=== PATIENT | male | born 1960 | race Caucasian/White ===

== ENCOUNTER 2020-08-21 16:56 | Inpatient (IN) | payer BC, SELFPAY ==
[2020-08-21] VITALS (13 sets, daily range): BP systolic 129–156; BP diastolic 73–100; PULSE 68–92; RESP 18–31; TEMP 36.4–38; O2SAT 88–96; BMI 29.1; BMI 29.4
--- NOTE | 2020-08-21 17:03 | EKG12_ITS ---
Test Reason : Blood Pressure : / mmHG Vent. Rate : 075 BPM Atrial Rate : 075 BPM P-R Int : 120 ms QRS Dur : 090 ms QT Int : 384 ms P-R-T Axes : 047 068 051 degrees QTc Int : 428 ms Normal sinus rhythm Normal ECG Confirmed by DAVID VERMA, DIOR ([id number]), online content editor KENISHA TOUSSAINT ([id number]) on 08/23/2020 10:47:08 A M Referred By: ABDULKADIR Confirmed By:RIAN HERNANDEZ MD
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
[2020-08-21 17:22] LABS: Prothrombin Time (Protime)PT. 12.7 SECONDS (11.7-14.9)
[2020-08-21] MEDS: Albuterol 2.5 MG/3 ML VIAL.NEB. INHALATION (17:22)
[2020-08-21 17:23] LABS: Partial Thromboplast Time 30.5 Seconds (24.1-36.2)
[2020-08-21 17:26] LABS: Absolute Neutrophil Count 17.2 X10^3/uL (2.0-7.7); Basophil# 0.06 X10^3/uL; Basophil% 0.3 % (0-1); Hematocrit 42.5 % (40-54); Hemoglobin 14.2 g/dL (13.0-16.5); Lymphocyte % 6.2 % (19-41); Mean Corp Hgb Conc 33.4 g/dL (32-36); Mean Corpuscular Hgb 29.1 pg (27.0-32.0); Mean Corpuscular Volume 87.1 fL (80-94); Mean Platelet Vol. 9.9 fl (6.2-12.0); Monocyte# 0.94 X10^3/uL; Monocyte% 4.8 % (0-10); NRBC Flagged by Analyzer 0 % (0-5); Neutrophil # 17.19 X10^3/uL (2.7-7.7); Neutrophil % 88.1 % (47-70); Platelet Count 297 K/mm3 (150-450); RBC Distribution Width CV 14.2 % (11.6-14.6); RBC Distribution Width SD 45.5 fl (35.1-43.9); Red Blood Count 4.88 M/mm3 (4.6-6.2); White Blood Count 19.5 K/mm3 (4.4-11.0)
[2020-08-21 17:30] LABS: ALB/GLOB Ratio 0.9 RATIO (0.9-2.4); AST(SGOT) 15 U/L (15-37); Alanine Aminotransfer ALT/SGPT 23 U/L (16-61); Albumin, Serum 3.7 g/dL (3.2-5.0); Alkaline Phosphatase 69 U/L (45-117); Anion Gap 6 (5-15); BUN 17 mg/dL (7-18); BUN/Creat Ratio 15.3 RATIO (10-20); Calcium,Total 9.5 mg/dL (8.5-10.1); Chloride 100 mmol/L (98-107); Creatinine, Serum 1.11 mg/dL (0.70-1.30); EST Glomerular Filtration Rate 72 mL/min (>60); Est Glom Filt Rate - Afr Amer 87 mL/min (>60); Glucose 126 mg/dL (74-106); Potassium 3.7 mmol/L (3.5-5.1); Protein, Total 7.7 g/dL (6.4-8.2); Sodium Level 134 mmol/L (136-145)
[2020-08-21 17:37] LABS: Lactic Acid 1.6 mmol/L (0.4-1.9)
[2020-08-21 19:38] LABS: Squamous Epithelial Cells - UA 0 SEEN /hpf (0-5)
[2020-08-21 19:39] LABS: Color, Urine Yellow (Yellow); Glucose, Dipstick Normal (Normal); Ketone-Dipstick 50 mg/dl (Negative); Leukocyte Esterase-Dipstick 25 /ul (Negative); Nitrite-Dipstick Negative (Negative); Occult Blood-Urine 150 /ul (Negative); Protein-Dipstick 30 mg/dl (Negative); Urine Bilirubin Dipstick Negative (Negative); Urine Clarity Clear (Clear); Urine Urobilinogen 1 mg/dl (Normal)
[2020-08-21 19:47] LABS: Red Blood Cells-Urine 0-5 SEEN /hpf (0-5); White Blood Cells 0-5 SEEN /hpf (0-5)
[2020-08-21 19:48] LABS: Bacteria RARE /hpf (None Seen); Mucous, Urine 1+ /hpf (<or=2+)
[2020-08-21] MEDS: 0.9% Normal Saline 1,000 ML 100 ML IV (21:58)
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
[2020-08-21] MEDS: Atorvastatin Calcium 40 MG Tablet PO (22:06)
[2020-08-21] MEDS: Morphine 2 MG/ML Syringe IV (22:23)
[2020-08-21 22:31] LABS: Bedside Glucose 128 mg/dL (70-110)
[2020-08-22] VITALS (10 sets, daily range): BP systolic 124–147; BP diastolic 78–89; PULSE 55–70; RESP 16–20; TEMP 36.7–36.8; O2SAT 93–99
[2020-08-22] MEDS: oxyCODONE 5 MG Tablet PO ×2 (03:23→11:03)
[2020-08-22] MEDS: Acetaminophen 325 MG Tablet 650 MG PO ×2 (03:23→11:03)
[2020-08-22 06:48] LABS: Absolute Neutrophil Count 14.7 X10^3/uL (2.0-7.7); Basophil# 0.06 X10^3/uL; Basophil% 0.4 % (0-1); Eosinophil# 0.01 X10^3/uL; Eosinophils% 0.1 % (0-5); Hematocrit 39.6 % (40-54); Hemoglobin 12.8 g/dL (13.0-16.5); Mean Corp Hgb Conc 32.3 g/dL (32-36); Mean Corpuscular Hgb 29.2 pg (27.0-32.0); Mean Corpuscular Volume 90.2 fL (80-94); Mean Platelet Vol. 9.7 fl (6.2-12.0); Monocyte# 0.93 X10^3/uL; Monocyte% 5.5 % (0-10); NRBC Flagged by Analyzer 0 % (0-5); Neutrophil % 86.2 % (47-70); Platelet Count 232 K/mm3 (150-450); RBC Distribution Width CV 14.3 % (11.6-14.6); Red Blood Count 4.39 M/mm3 (4.6-6.2)
[2020-08-22] MEDS: 0.9% Normal Saline 1,000 ML 100 ML IV ×2 (06:48→16:47)
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
[2020-08-22 07:11] LABS: Anion Gap 6 (5-15); BUN 17 mg/dL (7-18); BUN/Creat Ratio 19.7 RATIO (10-20); Calcium,Total 8.6 mg/dL (8.5-10.1); Chloride 103 mmol/L (98-107); Creatinine, Serum 0.86 mg/dL (0.70-1.30); EST Glomerular Filtration Rate 97 mL/min (>60); Est Glom Filt Rate - Afr Amer 117 mL/min (>60); Estimated Creatinine Clearance 96.67 ml/min; Glucose 115 mg/dL (74-106); Potassium 3.6 mmol/L (3.5-5.1); Sodium Level 136 mmol/L (136-145)
[2020-08-22 07:30] LABS: Bedside Glucose 103 mg/dL (70-110)
[2020-08-22] MEDS: Morphine 2 MG/ML Syringe IV ×2 (07:37→19:28)
[2020-08-22] MEDS: 0.9% Saline Lock 10 ML Syringe IV ×2 (07:38→22:12)
[2020-08-22] MEDS: Aspirin 81 MG TAB.CHEW PO (08:01)
[2020-08-22] MEDS: hydroCHLOROthiazide 12.5mg 12.5 MG PO (09:34)
[2020-08-22] MEDS: Azithromycin 250 MG Tablet 500 MG PO (09:34)
[2020-08-22] MEDS: Metoprolol(XL)Succ 50 MG Tablet PO (09:34)
[2020-08-22] MEDS: Lisinopril 20 MG Tablet PO (09:34)
[2020-08-22] MEDS: Enoxaparin 40 MG/0.4 ML Syringe SC (09:36)
--- NOTE | 2020-08-22 11:45 | CASEMGMT ---
RN CM Face to Face with patient for initial transition planning/care coordination assessment. RN CM introduced self and role at [facility]. Patient lying in bed, alert and oriented. Patient willing to participate in assessment and is able to answer all questions appropriately. Care providers, pharmacy, and demographics verified. Patient wishes to discharge home, denies need for home health at this time. Patient states he has no further needs or concerns at this time. CM to follow for discharge planning needs that may arise. PCP: Jerry PUTNAM Specialists: none [facility]erred [facility]acy[facility] Insurance: Cj Prescription Benefit: yes Living Will/HPOA: none LNOK: Fiance Living Arrangements: Patient lives with fihomer in a single story home with 3-4 steps and railing to enter the home. Patient states he is independent at home. Transportation: self/fiance DME/HHC: Patient denies DME or previous HHC. Disposition Plan: Patient to discharge home with family support and follow-up plans in place. Stephania QUIROZ, RN, CM
[2020-08-22 12:01] LABS: Bedside Glucose 128 mg/dL (70-110)
--- NOTE | 2020-08-22 15:04 | NURSING ---
O2 SAT 99% ON 3L NC - O2 DECREASED TO 1 L NC - WILL MONITOR
[2020-08-22 16:56] LABS: Bedside Glucose 124 mg/dL (70-110)
--- NOTE | 2020-08-22 17:38 | NURSING ---
offered to ambulate with pt, pt declines at this time
[2020-08-22] MEDS: Atorvastatin Calcium 40 MG Tablet PO (22:08)
[2020-08-22 22:21] LABS: Bedside Glucose 117 mg/dL (70-110)
[2020-08-23] MEDS: Acetaminophen 325 MG Tablet 650 MG PO ×2 (01:10→07:27)
[2020-08-23] MEDS: oxyCODONE 5 MG Tablet PO ×2 (01:10→07:28)
[2020-08-23 03:00] VITALS: BP 132/91; PULSE 52; RESP 16; TEMP 36.8; O2SAT 96
[2020-08-23] MEDS: 0.9% Normal Saline 1,000 ML 100 ML IV (03:40)
[2020-08-23 07:05] LABS: Bedside Glucose 135 mg/dL (70-110)
[2020-08-23 07:22] VITALS: O2SAT 94
[2020-08-23 07:45] VITALS: O2SAT 85
[2020-08-23 08:26] VITALS: BP 134/82; PULSE 76; RESP 18; TEMP 36.6; O2SAT 90
[2020-08-23 08:40] VITALS: BP 134/82; PULSE 76
[2020-08-23] MEDS: Aspirin 81 MG TAB.CHEW PO (08:40)
[2020-08-23] MEDS: Enoxaparin 40 MG/0.4 ML Syringe SC (08:40)
[2020-08-23] MEDS: Metoprolol(XL)Succ 50 MG Tablet PO (08:40)
[2020-08-23] MEDS: hydroCHLOROthiazide 12.5mg 12.5 MG PO (08:40)
[2020-08-23] MEDS: Lisinopril 20 MG Tablet PO (08:41)
[2020-08-23] MEDS: Azithromycin 250 MG Tablet 500 MG PO (08:41)
[2020-08-23 08:56] LABS: Absolute Lymphocyte Count 1.04 X10^3/uL (0.83-4.51); Basophil# 0.04 X10^3/uL; Basophil% 0.4 % (0-1); Eosinophil# 0.28 X10^3/uL; Eosinophils% 3.1 % (0-5); Hematocrit 39.8 % (40-54); Lymphocyte # 1.04 X10^3/ul (0.83-4.51); Lymphocyte % 11.3 % (19-41); Mean Corp Hgb Conc 32.7 g/dL (32-36); Mean Corpuscular Hgb 29.1 pg (27.0-32.0); Mean Corpuscular Volume 89.2 fL (80-94); Mean Platelet Vol. 10.2 fl (6.2-12.0); Monocyte# 0.74 X10^3/uL; Monocyte% 8.1 % (0-10); NRBC Flagged by Analyzer 0 % (0-5); Neutrophil # 7.03 X10^3/uL (2.7-7.7); Neutrophil % 76.6 % (47-70); Platelet Count 271 K/mm3 (150-450); RBC Distribution Width CV 14.2 % (11.6-14.6); RBC Distribution Width SD 45.7 fl (35.1-43.9); Red Blood Count 4.46 M/mm3 (4.6-6.2); White Blood Count 9.2 K/mm3 (4.4-11.0)
[2020-08-23 09:13] LABS: Anion Gap 7 (5-15); BUN 16 mg/dL (7-18); Calcium,Total 8.8 mg/dL (8.5-10.1); Chloride 104 mmol/L (98-107); EST Glomerular Filtration Rate 105 mL/min (>60); Est Glom Filt Rate - Afr Amer 127 mL/min (>60); Estimated Creatinine Clearance 103.92 ml/min; Glucose 117 mg/dL (74-106); Magnesium 2.2 mg/dL (1.6-2.6); Potassium 3.6 mmol/L (3.5-5.1); Sodium Level 139 mmol/L (136-145)
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
--- NOTE | 2020-08-23 09:31 | PCM.DC ---
Discharge Instructions Diet Discharge Diet: 1800 Calorie Control Diet Dressing / Incision Call your doctor if you observe: Fever of 101 or Higher, Shortness of breath, Fainting spells and Chest pain Follow Up Care Test Results: Test results from this visit will be discussed in further detail at your follow-up appointment, if applicable. Discharge Plan Admission Admit Date/Time: 08/21/20 20:21 Primary Reason for Your Visit: Pneumonia Attending Provider: Ricky Hendricks Primary Care Provider: Nagi Edwards Discharge Orders/Prescriptions Prescriptions: New azithromycin 250 mg Tablet 500 mg PO Q24 Qty: 3 RF: 0 cefdinir 300 mg capsule 300 mg PO BID Qty: 10 RF: 0 Continued metoprolol succinate 50 MG tablet 50 mg PO DAILY RF: 0 hydrochlorothiazide 12.5 MG capsule 12.5 mg PO DAILY RF: 0 atorvastatin 40 MG tablet 40 mg PO QHS RF: 0 methocarbamol 500 mg tablet 500 mg PO PRN PRN (Reason: Pain) RF: 0 hydrocodone-acetaminophen 5-325 mg tablet 1 tab PO PRN PRN (Reason: Pain) RF: 0 lisinopril 20 mg tablet 20 mg PO DAILY RF: 0 metformin 1,000 mg tablet 1,000 mg PO BID RF: 0 oxycodone 5 mg tablet 5 mg PO PRN PRN (Reason: Pain) RF: 0 Trulicity 0.75 mg/0.5 mL pen injector 0.75 mg subcut PINK RF: 0 aspirin 81 mg Tablet,Chewable 81 mg PO DAILY RF: 0 Referrals / Follow Up: Nagi Edwards PA [Primary Care Provider] - In 1 Week Disposition Disposition (needs filled in before D/C Order can be placed): Home, self care
[2020-08-23 09:41] VITALS: O2SAT 85; O2SAT 90; O2SAT 93
--- NOTE | 2020-08-23 10:00 | CASEMGMT ---
KARLIE BILLINGS updated that patient will need home oxygen at discharge. KARLIE BILLINGS provided patient list of DME in network with insurance. Patient prefers [employer]. [place] [facility] [place]ARLIE BILLINGS arranged for delivery of portable to tank to patient's room prior to discharge. Patient had no further questions or concerns at this time.
== END 2020-08-23 12:27 | disposition home or self-care (01) | DRG 194 ==
LOC: ED 19:22 → MS3 21:11
PROVIDERS: Admitting Provider Family Medicine; Emergency Provider Emergency Medicine; PCP Physician Assistant; Visit Provider Internal Medicine
DX: J18.9 Pneumonia, unspecified organism (principal); S22.41XA Multiple fractures of ribs, right side, initial encounter for closed fracture; R09.02 Hypoxemia; V89.2XXA Person injured in unspecified motor-vehicle accident, traffic, initial encounter; Y93.9 Activity, unspecified; Y92.9 Unspecified place or not applicable; R06.89 Other abnormalities of breathing; E11.9 Type 2 diabetes mellitus without complications; E78.5 Hyperlipidemia, unspecified; I10 Essential (primary) hypertension; I25.10 Atherosclerotic heart disease of native coronary artery without angina pectoris; Z95.5 Presence of coronary angioplasty implant and graft; Z79.84 Long term (current) use of oral hypoglycemic drugs; Z79.82 Long term (current) use of aspirin; Z79.899 Other long term (current) drug therapy; F17.210 Nicotine dependence, cigarettes, uncomplicated
CPT/HCPCS: 36415; 71045; 80048; 80053; 81001; 82962; 83605; 83735; 85025; 85610; 85730; 87040; 87070; 87077; 87086; 87088; 87186; 87205; 93005; 97802; 99285; 99406; J7030; J7040; J7050; A4216; J0696

== ENCOUNTER 2021-10-03 14:42 | Emergency (ER) | payer OTHER, SELFPAY ==
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
[2021-10-03 14:42] VITALS: BP 137/84; PULSE 70; RESP 16; TEMP 35.9; O2SAT 96; BMI 29.8
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
[2021-10-03] MEDS: HYDROcodone Bitartrate/Apap 5/325 Tablet PO (15:30)
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
== END 2021-10-03 17:04 | disposition home or self-care (01) ==
PROVIDERS: Emergency Provider Emergency Medicine; PCP Physician Assistant; Visit Provider Emergency Medicine
DX: S39.012A Strain of muscle, fascia and tendon of lower back, initial encounter (principal); E11.9 Type 2 diabetes mellitus without complications; I25.10 Atherosclerotic heart disease of native coronary artery without angina pectoris; E78.5 Hyperlipidemia, unspecified; I10 Essential (primary) hypertension; Z79.82 Long term (current) use of aspirin; Z79.899 Other long term (current) drug therapy; Z79.84 Long term (current) use of oral hypoglycemic drugs; F17.210 Nicotine dependence, cigarettes, uncomplicated; M19.041 Primary osteoarthritis, right hand; V29.9XXA Motorcycle rider (driver) (passenger) injured in unspecified traffic accident, initial encounter; S00.91XA Abrasion of unspecified part of head, initial encounter
CPT/HCPCS: 70450; 71046; 72125; 73130; 99284

== ENCOUNTER 2021-10-07 05:10 | Emergency (ER) | payer OTHER, SELFPAY ==
[2021-10-07 05:11] VITALS: BP 183/97; PULSE 57; RESP 14; TEMP 36.6; O2SAT 98; BMI 28.5
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
== END 2021-10-07 06:17 | disposition home or self-care (01) ==
PROVIDERS: Emergency Provider Emergency Medicine; PCP Physician Assistant; Visit Provider Emergency Medicine
DX: S39.012A Strain of muscle, fascia and tendon of lower back, initial encounter (principal); E11.9 Type 2 diabetes mellitus without complications; I25.10 Atherosclerotic heart disease of native coronary artery without angina pectoris; I10 Essential (primary) hypertension; F17.210 Nicotine dependence, cigarettes, uncomplicated; E78.5 Hyperlipidemia, unspecified; Z79.82 Long term (current) use of aspirin; Z79.899 Other long term (current) drug therapy; Z79.84 Long term (current) use of oral hypoglycemic drugs; V23.4XXA Motorcycle driver injured in collision with car, pick-up truck or van in traffic accident, initial encounter; Z95.5 Presence of coronary angioplasty implant and graft
CPT/HCPCS: 72100; 72170; 99282

== ENCOUNTER 2021-12-11 17:01 | Emergency (ER) | payer OTHER, SELFPAY ==
[2021-12-11 17:02] VITALS: BP 138/82; PULSE 73; RESP 18; TEMP 36.2; O2SAT 97; BMI 28.5
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
--- NOTE | 2021-12-11 18:05 | RAD_ITS ---
STUDY: X-RAY CHEST REASON FOR EXAM: Male, 61 years old. Bilateral rib pain TECHNIQUE: PA and lateral views of the chest. COMPARISON: October 03, 2021 FINDINGS: There is no focal infiltrate. There is 0.7 cm right lower lung nodule versus nipple shadow. There is no demonstrated pleural abnormality. Normal size heart. Normal mediastinum and james. Normal visualized pulmonary arteries. Normal visualized aortic arch and descending thoracic aorta. There are diffuse degenerative changes of the visualized thoracic spine. Normal visualized ribs, clavicles, and shoulders. There is no demonstrated abnormality of the visualized soft tissue structures of the upper abdomen. RAD/Chest PA and Lateral IMPRESSION: Right lower lung nodule versus nipple shadow. Recommend repeat exam with nipple markers for further evaluation. Electronically Signed: Srikanth Jesus MD at 18:56 EDT ,
--- NOTE | 2021-12-11 19:33 | ED.RN ---
Patient not present when this RN went to room to discharge him.
== END 2021-12-11 19:34 | disposition home or self-care (01) ==
PROVIDERS: Emergency Provider Student in an Organized Health Care Education/Training Program; PCP Physician Assistant; Visit Provider Student in an Organized Health Care Education/Training Program
DX: S22.39XA Fracture of one rib, unspecified side, initial encounter for closed fracture (principal); E11.9 Type 2 diabetes mellitus without complications; E78.5 Hyperlipidemia, unspecified; I25.10 Atherosclerotic heart disease of native coronary artery without angina pectoris; F17.210 Nicotine dependence, cigarettes, uncomplicated; I10 Essential (primary) hypertension; X50.1XXA Overexertion from prolonged static or awkward postures, initial encounter
CPT/HCPCS: 71046; 99282

== ENCOUNTER 2022-08-30 15:03 | Emergency (ER) | payer OTHER, SELFPAY ==
[2022-08-30 15:04] VITALS: BP 132/92; PULSE 74; RESP 16; TEMP 36.3; O2SAT 98; BMI 25.7
--- NOTE | 2022-08-30 15:30 | EDS_ITS ---
HPI <INDY Krishnan - Last Filed: 08/30/22 16:05> History of Present Illness Chief Complaint: Other, Pain/Inj Narrative Narrative: 61-year-old male presents with left arm x3 months. He saw a spinal doctor at [facility] and was told it is cervical pinched nerves. He had x-rays that showed he has lost the normal curvature of his neck. He is trying PT before they order an MRI. In PT they have been doing cervical traction and exercises which had been going okay until 3 days ago when the arm pain worsened and became constant. He gets sharp burning pain and tingling mainly along the inner forearm. He is taking Tylenol and Lyrica with no improvement. He states over the last month and a half he has had some difficulty picking up jars but otherwise has no significant weakness. [facility], [facility] <INDY Krishnan - Last Filed: 08/30/22 16:05> [facility] Medical History Abdominal aneurysm Brain aneurysm Coronary artery disease Diabetes Hyperlipemia Hypertension Smoker Home Medications atorvastatin 40 mg tablet 40 mg PO QHS 03/05/14 [History Last Taken 08/20/20] hydrochlorothiazide 12.5 mg capsule 12.5 mg PO DAILY 03/05/14 [History Last Taken 08/21/20] metoprolol succinate 50 mg tablet,extended release 24 hr 50 mg PO DAILY 03/05/14 [History Last Taken 08/21/20] aspirin 81 mg chewable tablet 81 mg PO DAILY 08/21/20 [History Last Taken 08/21/20] dulaglutide 0.75 mg/0.5 mL subcutaneous pen injector (Trulicity) 0.75 mg subcut PINK 08/21/20 [History Last Taken 08/18/20] hydrocodone-acetaminophen 5-325mg 5mg-325mg 1 tab PO PRN PRN Pain 08/21/20 [History Last Taken Unknown] lisinopril 20 mg tablet 20 mg PO DAILY 08/21/20 [History Last Taken 08/21/20] metformin 1,000 mg tablet 1,000 mg PO BID 08/21/20 [History Last Taken 08/21/20] methocarbamol 500 mg tablet 500 mg PO PRN PRN Pain 08/21/20 [History Last Taken Unknown] oxycodone 5 mg tablet 5 mg PO PRN PRN Pain 08/21/20 [History Last Taken Unknown] azithromycin 250 mg tablet 500 mg PO Q24 #3 tabs 08/23/20 [Rx Last Taken Unknown] cefdinir 300 mg capsule 300 mg PO BID #10 caps 08/23/20 [Rx Last Taken Unknown] hydrocodone-acetaminophen 5-325mg 5mg-325mg 1 tab PO Q4H PRN pain 5 days #14 tabs 10/03/21 [Rx Last Taken Unknown] hydrocodone-acetaminophen 5-325mg 5mg-325mg 1 tab PO Q4H PRN pain 2 days #10 tabs 10/07/21 [Rx Last Taken Unknown] cyclobenzaprine 10 mg tablet 10 mg PO BID PRN muscle spasm #10 tabs 12/11/21 [Rx Last Taken Unknown] naproxen 500 mg tablet (Naprosyn) 500 mg PO BID PRN pain #20 tabs 12/11/21 [Rx Last Taken Unknown] hydrocodone-acetaminophen 5-325mg 5mg-325mg 1 tab PO Q6H PRN pain 3 days #12 tabs 08/30/22 [Rx Last Taken Unknown] Allergy/AdvReac Type Severity Reaction Status Date / Time Penicillins Allergy Rash Verified 08/30/22 15:04 Family History Mother Heart disease Diabetes Father Cancer Heart disease Surgical History History of appendectomy History of coronary artery stent placement Social History Smoking Status: Current every day smoker tobacco type: cigarettes ROS <INDY Krishnan - Last Filed: 08/30/22 16:05> ROS ED ROS Narrative Constitutional: Negative for fever, chills, malaise. CVS: Negative for palpitations, chest pain. Respiratory: Negative for shortness of breath Neuro: Negative for motor/sensory dysfunction. Skin: Negative for rash, abscess, or wound. EXAM <INDY Krishnan - Last Filed: 08/30/22 16:05> Physical Exam Narrative Exam Narrative: CONST: Patient sitting in no acute distress. EYES: Normal inspection. NECK: Normal inspection. RESP: No respiratory distress, CTAB. CVS: Regular rate and rhythm, no murmur, no gallop. SKIN: Color normal, no rash, warm, dry, intact. EXTREMITIES: Normal appearance, full ROM, 2+ radial pulses. Both upper extremities 5/5 strength in shoulder abduction, elbow and wrist flexion/extension, and director graphics strength. Normal sensation in axillary median radial ulnar distributions. Brisk cap refill. NEURO: Oriented x4. PSYCH: Normal affect. Const Vital Signs: 08/30/22 15:04 Temperature 97.3 F L Temperature Source Temporal Pulse Rate 74 Respiratory Rate 16 Blood Pressure 132/92 H Blood Pressure Mean 105 Pulse Ox 98 <Dr. Harriett Temple MD - Last Filed: 08/30/22 16:56> Physical Exam Const Vital Signs: 08/30/22 15:04 Temperature 97.3 F L Temperature Source Temporal Pulse Rate 74 Respiratory Rate 16 Blood Pressure 132/92 H Blood Pressure Mean 105 Pulse Ox 98 [facility] <INDY Krishnan - Last Filed: 08/30/22 16:05> [facility] Narrative Medical decision making narrative: Patient has left arm pain consistent with C8 radiculopathy. He has normal strength, sensation, and pulses on exam. Based on this I am not concerned for acute cord compression and do not think emergent MRI is indicated. His pain was treated with Toradol and morphine with improvement. I prescribed [place] for home and recommended he call his specialist tomorrow. He was agreeable with this plan and discharged in stable condition. <Dr. Harriett Temple MD - Last Filed: 08/30/22 16:56> [facility] Treatment and Re-Evaluation :: Patient seen and evaluated with [facility]BI. I personally interviewed and examined the patient. I was involved in all aspects of patient's orders, interpretation of results, and treatment. Patient presents secondary to left-sided neck and arm pain. He has had a problem with cervical radiculopathy in the past. It is recently flared up on him again. He recently saw a spine surgeon through [facility] and was started on Lyrica. He is currently undergoing physical therapy but states he only goes once every 2 weeks. He is using cervical traction. He states yesterday while using the traction he had sharp pain that shot down his left arm. He states normally it will subside after a minute or so but yesterday's would not resolve. Patient sitting upright in bed no acute distress. Head and neck examination largely unremarkable. No midline cervical tenderness. Heart is regular rate and rhythm. Lung sounds are clear. Abdomen is soft and nontender. Left upper extremity examination reveals strong distal pulses and normal sensation. Strong hand grasp. He does have pain with shoulder movement. Patient was given IM injections here for pain control. I did do an [facility] report. Patient has not had any narcotics prescribed since October of last year. We will write him a short course of [place] and patient will follow-up with a spine surgeon tomorrow. With no new injury I do not believe repeat x-rays are warranted at this time. He is currently awaiting completion of physical therapy to be approved for an MRI Discharge Plan Triage Chief Complaint: Other, Pain/Inj ED Midlevel Provider: Berkley [place] ED Provider: Harriett Temple Dx/Rx/DC Orders Clinical Impression: Cervical radiculopathy Instructions: Cervical Spine Tx Prescriptions: New hydrocodone-acetaminophen 5-325 mg tablet 1 tab PO Q6H PRN (Reason: pain) 3 Days Qty: 12 0RF No Action metoprolol succinate 50 MG tablet 50 mg PO DAILY hydrochlorothiazide 12.5 MG capsule 12.5 mg PO DAILY atorvastatin 40 MG tablet 40 mg PO QHS methocarbamol 500 mg tablet 500 mg PO PRN PRN (Reason: Pain) Label Comments: TAKE 1 TABLET BY MOUTH THREE TIMES DAILY NEEDED FOR MUSCLE SPASM hydrocodone-acetaminophen 5-325 mg tablet 1 tab PO PRN PRN (Reason: Pain) Label Comments: TAKE 1 TABLET BY MOUTH EVERY 8 HOURS NEEDED FOR PAIN lisinopril 20 mg tablet 20 mg PO DAILY Label Comments: TAKE 1 TABLET BY MOUTH ONCE DAILY metformin 1,000 mg tablet 1,000 mg PO BID Label Comments: TAKE 1 TABLET BY MOUTH TWICE DAILY WITH MEALS oxycodone 5 mg tablet 5 mg PO PRN PRN (Reason: Pain) Label Comments: TAKE 1 TABLET BY MOUTH EVERY 6 HOURS NEEDED FOR 7 DAYS Trulicity 0.75 mg/0.5 mL pen injector 0.75 mg subcut PINK Label Comments: INJECT 0.75MG SUBCUTANEOUSLY ONCE WEEKLY aspirin 81 mg Tablet,Chewable 81 mg PO DAILY azithromycin 250 mg Tablet 500 mg PO Q24 Qty: 3 0RF cefdinir 300 mg capsule 300 mg PO BID Qty: 10 0RF hydrocodone-acetaminophen 5-325 mg tablet 1 tab PO Q4H PRN (Reason: pain) 5 Days Qty: 14 0RF hydrocodone-acetaminophen 5-325 mg tablet 1 tab PO Q4H PRN (Reason: pain) 2 Days Qty: 10 0RF naproxen [Naprosyn] 500 mg tablet 500 mg PO BID PRN (Reason: pain) Qty: 20 0RF cyclobenzaprine 10 mg tablet 10 mg PO BID PRN (Reason: muscle spasm) Qty: 10 0RF Primary Care Provider: Nagi Edwards Referrals: Nagi Edwards PA [Primary Care Provider] - Activity Restrictions/Additional Instructions: Follow-up with your spinal doctor Disposition Disposition: Home, Self Care Discharge Date/Time: 08/30/22 16:12
[2022-08-30] MEDS: Ketorolac 30 MG/ML Syringe IM (15:33)
[2022-08-30] MEDS: Ondansetron ODT 4 MG Tablet PO (15:33)
[2022-08-30] MEDS: Morphine 4 MG/ML Syringe IM (15:34)
== END 2022-08-30 16:12 | disposition home or self-care (01) ==
PROVIDERS: Emergency Provider Emergency Medicine; PCP Physician Assistant; Visit Provider Emergency Medicine
DX: M54.12 Radiculopathy, cervical region (principal); E11.9 Type 2 diabetes mellitus without complications; I25.10 Atherosclerotic heart disease of native coronary artery without angina pectoris; F17.210 Nicotine dependence, cigarettes, uncomplicated; I10 Essential (primary) hypertension; E78.5 Hyperlipidemia, unspecified; Z79.899 Other long term (current) drug therapy; Z79.84 Long term (current) use of oral hypoglycemic drugs; Z90.49 Acquired absence of other specified parts of digestive tract; Z95.5 Presence of coronary angioplasty implant and graft
CPT/HCPCS: 96372; 99282

== ENCOUNTER 2023-03-27 09:38 | Emergency (ER) | payer OTHER, SELFPAY ==
[2023-03-27] VITALS (20 sets, daily range): BP systolic 121–141; BP diastolic 77–91; PULSE 52–62; RESP 14–21; TEMP 35.7; O2SAT 97–98; BMI 27.8
--- NOTE | 2023-03-27 09:51 | EX.ED.GENINJ ---
HPI History of Present Illness Chief Complaint: Nausea/Vomiting PFSH PFSH Medical History Abdominal aneurysm Brain aneurysm Coronary artery disease Diabetes Hyperlipemia Hypertension Smoker Home Medications atorvastatin 40 mg tablet 40 mg PO QHS 03/05/14 [History Last Taken 08/20/20] hydrochlorothiazide 12.5 mg capsule 12.5 mg PO DAILY 03/05/14 [History Last Taken 08/21/20] metoprolol succinate 50 mg tablet,extended release 24 hr 50 mg PO DAILY 03/05/14 [History Last Taken 08/21/20] aspirin 81 mg chewable tablet 81 mg PO DAILY 08/21/20 [History Last Taken 08/21/20] dulaglutide 0.75 mg/0.5 mL subcutaneous pen injector (Trulicity) 0.75 mg subcut PINK 08/21/20 [History Last Taken 08/18/20] hydrocodone-acetaminophen 5-325mg 5mg-325mg 1 tab PO PRN PRN Pain 08/21/20 [History Last Taken Unknown] lisinopril 20 mg tablet 20 mg PO DAILY 08/21/20 [History Last Taken 08/21/20] metformin 1,000 mg tablet 1,000 mg PO BID 08/21/20 [History Last Taken 08/21/20] methocarbamol 500 mg tablet 500 mg PO PRN PRN Pain 08/21/20 [History Last Taken Unknown] oxycodone 5 mg tablet 5 mg PO PRN PRN Pain 08/21/20 [History Last Taken Unknown] azithromycin 250 mg tablet 500 mg (2 x 250 mg) PO Q24 #3 tabs 08/23/20 [Rx Last Taken Unknown] cefdinir 300 mg capsule 300 mg PO BID #10 caps 08/23/20 [Rx Last Taken Unknown] hydrocodone-acetaminophen 5-325mg 5mg-325mg 1 tab PO Q4H PRN pain 5 days #14 tabs 10/03/21 [Rx Last Taken Unknown] hydrocodone-acetaminophen 5-325mg 5mg-325mg 1 tab PO Q4H PRN pain 2 days #10 tabs 10/07/21 [Rx Last Taken Unknown] cyclobenzaprine 10 mg tablet 10 mg PO BID PRN muscle spasm #10 tabs 12/11/21 [Rx Last Taken Unknown] naproxen 500 mg tablet (Naprosyn) 500 mg PO BID PRN pain #20 tabs 12/11/21 [Rx Last Taken Unknown] hydrocodone-acetaminophen 5-325mg 5mg-325mg 1 tab PO Q6H PRN pain 3 days #12 tabs 08/30/22 [Rx Last Taken Unknown] Allergy/AdvReac Type Severity Reaction Status Date / Time Penicillins Allergy Rash Verified 08/30/22 15:04 Family History Mother Heart disease Diabetes Father Cancer Heart disease Surgical History History of appendectomy History of coronary artery stent placement Social History Smoking Status: Current every day smoker tobacco type: cigarettes EXAM Physical Exam Const Vital Signs: 03/27/23 09:39 03/27/23 10:41 03/27/23 11:15 Temperature 96.3 F L Temperature Source Temporal Pulse Rate 57 L 53 L Respiratory Rate 16 15 Blood Pressure 141/85 H 128/79 H Blood Pressure Mean 103 95 Pulse Ox 97 Oxygen Delivery Method Room Air Room Air 03/27/23 11:20 03/27/23 11:30 03/27/23 11:40 Temperature Temperature Source Pulse Rate 53 L 53 L 52 L Respiratory Rate 18 20 H 18 Blood Pressure 123/78 H Blood Pressure Mean 92 Pulse Ox Oxygen Delivery Method 03/27/23 11:45 03/27/23 11:50 03/27/23 12:00 Temperature Temperature Source Pulse Rate 52 L 62 Respiratory Rate 18 16 Blood Pressure 124/83 H 121/91 H Blood Pressure Mean 95 102 Pulse Ox Oxygen Delivery Method 03/27/23 12:10 03/27/23 12:15 03/27/23 12:20 Temperature Temperature Source Pulse Rate 55 L 54 L 54 L Respiratory Rate 16 18 15 Blood Pressure 126/84 H Blood Pressure Mean 98 Pulse Ox Oxygen Delivery Method 03/27/23 12:30 03/27/23 12:40 03/27/23 12:45 Temperature Temperature Source Pulse Rate 55 L 52 L 54 L Respiratory Rate 21 H 19 H 19 H Blood Pressure 121/78 H 124/77 H Blood Pressure Mean 92 90 Pulse Ox Oxygen Delivery Method 03/27/23 12:50 03/27/23 13:00 03/27/23 13:10 Temperature Temperature Source Pulse Rate 53 L 54 L 52 L Respiratory Rate 20 H 20 H 19 H Blood Pressure 121/78 H Blood Pressure Mean 92 Pulse Ox Oxygen Delivery Method 03/27/23 13:15 03/27/23 13:20 03/27/23 13:49 Temperature Temperature Source Pulse Rate 56 L 54 L 57 L Respiratory Rate 20 H 14 16 Blood Pressure 124/79 H 125/78 H Blood Pressure Mean 93 93 Pulse Ox 98 Oxygen Delivery Method [facility] [place] Narrative Medical decision making narrative: HISTORY OF PRESENT ILLNESS: 62-year-old male here for lightheadedness and nausea. He vehemently denies any dizziness. The patient states he developed sudden nausea, nearly passed out while chopping wood today. Denies any chest pain. He notes over the last several days he has had nondescript sensations right of his chest that he describes as warmth and tingling. Denies any symptoms currently. CAD status post stents The patient denies recent surgery in the last 4 weeks or immobilization in the last 3 days, denies previous diagnosis of DVT or PE, hemoptysis, unilateral leg swelling or malignancy with treatment the last 6 months or palliative. No estrogen use noted. Patient denies sudden onset of pain, no tearing sensation, no migratory symptoms, no new numbness, weakness or loss of sensation. Patient denies family history or personal history of Connective tissue disorders (Marfan's Syndrome, Flores Danlos etc). REVIEW OF SYSTEMS: Pertinent positives: Nausea, shortness of breath Pertinent negatives: Chest pain, vomiting, bleeding diathesis, leg swelling, focal weakness PHYSICAL EXAM: Nursing triage notes reviewed, Vital signs reviewed Constitutional: please see [email or web address] HENT: MMM Eyes: Pupils equal round and reactive to light, Extraocular muscles intact Neck: No stridor, no JVD, full neck ROM Lungs: Clear to auscultation, No wheezing or rales. No increased work of breathing, no conversational dyspnea, no accessory muscle use, no nasal flaring. No respiratory distress noted Heart: Regular rate and rhythm, No murmurs, No rubs and No gallops, 2+ distal pulses (radial, femoral, posterior tibial) in all extremities Abdomen: Soft, there is no tenderness, rigidity, rebound or guarding, no obvious peritoneal signs, no palpable pulsatile abdominal masses, no auscultated abdominal bruit : No CVAT Extremities: No edema Neuro: Alert and oriented x3, neuro exam at baseline, cranial nerves II through XII are intact. No pain with extraocular muscle movement. There is negative test of skew. 5 of 5 strength in upper and lower extremities in flexion extension. Intact sensation to light touch in upper and lower extremity dermatomes. No truncal or extremity ataxia. No dysdiadochokinesia. Normal gait. 2+ reflexes in upper and lower extremities. No meningeal signs. Negative Babinski. NIH of 0. Skin: No rash or lesions noted MEDICAL DECISION MAKING: Chief Complaint: Nausea, lightheadedness External records reviewed: Imaging reviewed: CT scan of the brain from September 2021 shows no acute intracranial normality Factors affecting care: Hypertension, type 2 diabetes, hyperlipidemia Social determinants of health: Tobacco use History obtained from others: none Consults: none [facility] Narrative: The patient was initially hemodynamically stable, afebrile, nontoxic-appearing. I considered the following differential diagnosis: ACS, arrhythmia, anemia, dehydration, electrolyte disturbance, vagal reaction, PE, dissection The patient's history and clinical exam not consistent with PE as patient is low Wells risk score. He had no history of ripping or tearing pain, he had symmetric pulses. Low suspicion for dissection at this time. ALL IMAGES (IF OBTAINED) HAVE BEEN PERSONALLY REVIEWED AND INTERPRETED BY MYSELF. EKG with sinus bradycardia, normal axis, normal intervals, no STEMI CBC without leukocytosis, severe anemia, no thrombocytopenia. BMP without evidence of significant electrolyte abnormalities, no anion gap, no acute kidney injury. High-sensitivity troponin is negative, no evidence of myocardial ischemia Second-troponin is negative The synthesis of the patient's history, physical exam, labs images suggest no acute myocardial ischemia, anemia, electrolyte disturbances. Chest x-ray was read and reviewed myself shows no evidence of obvious pneumonia or pneumothorax. No clear etiology could explain the patient's symptoms. He is not complaining of chest pain during his entire ED stay. His heart score is 3, low risk he is appropriate for discharge home. I completed a HEART Score to screen for Major Adverse Cardiac Event (MACE) in this patient. The evidence indicates that the patient is very low risk for MACE and this is consistent with my clinical intuition. The risk of further workup or hospitalization for MACE is likely higher than the risk of the patient having a MACE. It is, therefore, in the patient?s best interest not to do additional emergent testing or to be hospitalized for MACE at this time. Shared Decision-Making No hospitalization indicated I have discussed with the patient my clinical impression and the result of the HEART Score to screen for MACE, as well as the risks of further testing and hospitalization. The HEART Score shows that the risk for MACE is less than 1%. Although the risk of MACE has not been completely eliminated, the risks of further testing or hospitalization for MACE likely exceed any potential benefit, and the patient agrees with not pursuing further emergent evaluation or hospitalization for MACE at this time. I completed a structured, evidence-based clinical evaluation to screen for acute stroke and neurologic deficits given his report of dizziness. I found no concerning findings. The patient has a normal detailed neurologic exam, which is highly sensitive for dangerous causes of dizziness, vertigo, or loss of balance. The evidence indicates that the patient is very low risk for an acute neurologic emergency and this is consistent with my clinical intuition. The risk of further workup or hospitalization is likely higher than the risk of the patient having a stroke or other dangerous neurologic condition. It is, therefore, in the patient?s best interest not to do additional emergent testing or to be hospitalized at this time. The evidence shows that the risk for stroke is less than 1%. Although the risk of stroke has not been completely eliminated, the risks of further testing or hospitalization likely exceed any potential benefit, and the patient agrees with not pursuing further emergent evaluation or hospitalization for stroke evaluation at this time. The patient and/or family, caregivers express understanding. The patient and/or family, caregivers agrees with the plan. Total critical care time today provided was at least 0 minutes. This excludes separately billable procedures. Critical care time (if documented) is secondary to the patient having high probability of clinically significant/life threatening deterioration in the patient's condition which required my urgent intervention. Impression: 1. Near syncope 2. Nausea Dispo: Discharge Lab Data Labs: Laboratory Results - last 24 hr 03/27/23 03/27/23 09:52 12:48 WBC 7.9 RBC 5.07 Hgb 14.9 Hct 44.9 MCV 88.6 MCH 29.4 MCHC 33.2 RDW Std Deviation 47.2 H RDW Coeff of Thomas 14.6 Plt Count 305 MPV 10.7 Immature Gran % (Auto) 0.300 Neut % (Auto) 61.7 Lymph % (Auto) 27.7 [place] % (Auto) 7.5 Eos % (Auto) 1.9 Baso % (Auto) 0.9 Absolute Neuts (auto) 4.9 Absolute Lymphs (auto) 2.18 Nucleated RBC % 0 Sodium 140 Potassium 3.7 Chloride 107 Carbon Dioxide 27.0 Anion Gap 6 BUN 25 H Creatinine 1.10 Estim Creat Clear Calc 81.17 Est GFR (MDRD) Af Amer 87 Est GFR (MDRD) Non-Af 72 BUN/Creatinine Ratio 22.7 H Glucose 135 H Calcium 9.4 Troponin I High Sens 10 9 Radiography Diagnostic Testing: Clinical Impression(s) from Imaging Studies Chest X-Ray 03/27/23 10:41 IMPRESSION: No acute cardiopulmonary disease. Electronically Signed: Srikanth Jesus MD at 12:03 EST , Discharge Plan Triage Chief Complaint: Nausea/Vomiting Other Complaint: Dizziness ED Provider: Aren Faust Dx/Rx/DC Orders Instructions: ED Dizziness, Uncertain Cause Prescriptions: No Action metoprolol succinate 50 MG tablet 50 mg PO DAILY hydrochlorothiazide 12.5 MG capsule 12.5 mg PO DAILY atorvastatin 40 MG tablet 40 mg PO QHS methocarbamol 500 mg tablet 500 mg PO PRN PRN (Reason: Pain) Patient Comments: TAKE 1 TABLET BY MOUTH THREE TIMES DAILY NEEDED FOR MUSCLE SPASM hydrocodone-acetaminophen 5-325 mg tablet 1 tab PO PRN PRN (Reason: Pain) Patient Comments: TAKE 1 TABLET BY MOUTH EVERY 8 HOURS NEEDED FOR PAIN lisinopril 20 mg tablet 20 mg PO DAILY Patient Comments: TAKE 1 TABLET BY MOUTH ONCE DAILY metformin 1,000 mg tablet 1,000 mg PO BID Patient Comments: TAKE 1 TABLET BY MOUTH TWICE DAILY WITH MEALS oxycodone 5 mg tablet 5 mg PO PRN PRN (Reason: Pain) Patient Comments: TAKE 1 TABLET BY MOUTH EVERY 6 HOURS NEEDED FOR 7 DAYS Trulicity 0.75 mg/0.5 mL pen injector 0.75 mg subcut PINK Patient Comments: INJECT 0.75MG SUBCUTANEOUSLY ONCE WEEKLY aspirin 81 mg Tablet,Chewable 81 mg PO DAILY azithromycin 250 mg Tablet 500 mg PO Q24 Qty: 3 0RF cefdinir 300 mg capsule 300 mg PO BID Qty: 10 0RF hydrocodone-acetaminophen 5-325 mg tablet 1 tab PO Q4H PRN (Reason: pain) 5 Days Qty: 14 0RF hydrocodone-acetaminophen 5-325 mg tablet 1 tab PO Q4H PRN (Reason: pain) 2 Days Qty: 10 0RF naproxen [Naprosyn] 500 mg tablet 500 mg PO BID PRN (Reason: pain) Qty: 20 0RF cyclobenzaprine 10 mg tablet 10 mg PO BID PRN (Reason: muscle spasm) Qty: 10 0RF hydrocodone-acetaminophen 5-325 mg tablet 1 tab PO Q6H PRN (Reason: pain) 3 Days Qty: 12 0RF Stand Alone Forms: ED Work / School Excuse Primary Care Provider: Nagi Edwards Referrals: Nagi Edwards PA [Primary Care Provider] - Activity Restrictions/Additional Instructions: Thank you for trusting us with your care today! Please take Tylenol (2 pills, 650 mg), ibuprofen (2 pills, 400 mg) every 6 hours as needed for pain and fever control. Please return to the emergency department if your symptoms change or worsen. Please follow with your primary care physician for further outpatient evaluation and management. Disposition Disposition: Home, Self Care Discharge Date/Time: 03/27/23 13:50
--- OUTSIDE RECORDS SUMMARY | 2023-03-27 10:14 | XMS RPT_ITS | CCD ---
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 Reason Comments medication questions Reason Comments Results Reason Comments Pain Left arm Reason Comments Appointment Reason Comments Patient Update Reason Comments Results Reason Comments Abdominal Pain Reason Comments New Patient Neck Pain Pain (Shoulder Pain) LEFT Arm Pain LEFT Reason Comments Neck Pain Reason Comments Medication Problem Reason Comments Patient Update Reason Comments Orders Results 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 Reason Comments new medication question Reason Comments Prior Authorization Request for Trulicit y Reason Comments Orders Reason Comments Results Reason Onset Date Comments Refill Request 10/27/2022 Reason Comments Follow Up Neck Pain Reason Onset Date Comments Refill Request 11/30/2022 Reason Onset Date Comments Refill Request 12/14/2022 Reason Comments 6 Month Exam Pain (Shoulder Pain) Right Fatigue Reason Onset Date Comments Refill Request 12/28/[address] Specialty Diagnoses / Procedures Referred By Contac t Referred To Contact CT IMAGING Diagnoses Aortic ectasia, thoracic (HCC) Infrarenal abdominal aortic aneurysm (AAA) without rupture (HCC) Procedures CT ABD/PEL W IVCON CT ABD & PELVIS W/CONTRAST Nagi Edwards PA-C [address] [place] [address] [place] [address] Referral ID Status Reason Start Date Expiration Date V isits Requested Visits Authorized [id number] Closed Auto-Generate d Referral 06/08/2022 07/23/2022 1 1 Specialty Diagnoses / Procedures Referred By Contac t Referred To Contact MR IMAGING Diagnoses Spinal stenosis of cervical region Procedures MRI CERVICAL SPINE WO IVCON MRI SPINAL CANAL CERVICAL W/O CONTRAST MATRL Nagi Edwards PA-C [address] [place] [address] [place] [address] Referral ID Status Reason Start Date Expiration Date V isits Requested Visits Authorized [id number] Closed Auto-Generate d Referral 09/02/2022 10/02/2023 1 1 Scheduled Active and Recently Administ ered Medications (unrecognized section and content) PRN Medication Order 08/16/2020 08/17/2020 08/18/2020 sodium chloride (PF) (NS) flush 5 mL(Linked Group 1) 5 mL, Intravenous, As needed, line care, Starting on 08/18/20 at 1754 sodium chloride 0.9% (NS)(Linked Group 1) 0-150 mL/hr, Intravenous, As needed, To flush line after IV infusions when no maintenance IV ordered or a compatibility issue. Infuse 20ml at the same rate as the secondary infusion, Starting on 08/18/20 at 1754, Run as Primary IV. NOT intended for KVO. Linked Groups Order Group 1: Insert peripheral IV (COMPLETED) MELQUIADES, Once, On 08/18/20 at 1755, For 1 occurrence And Saline lock IV (CANCELED) MELQUIADES, Once, On 08/18/20 at 1755, For 1 occurrence And sodium chloride (PF) (NS) flush 5 mLJump to med 5 mL, Intravenous, As needed, line care, Starting on 08/18/20 at 1754 And sodium chloride 0.9% (NS)Jump to med 0-150 mL/hr, Intravenous, As needed, To flush line after IV infusions when no maintenance IV ordered or a compatibility issue. Infuse 20ml at the same rate as the secondary infusion, Starting on 08/18/20 at 1754
Run as Primary IV. NOT intended for KVO.
Source Comments (unrecognize d section and content) In the event this informatio n is protected by the Federal Confidentiality of Alcohol and Drug Abuse Patient Records regulations: The Federal rules restrict any use of the information to criminally investigate or prosecute any alcohol or drug abuse patient.[facility] CenterIn the event this information is protected by the Federal Confidentiality of Alcohol and Drug Abuse Patient Records regulations: The Federal rules restrict any use of the information to criminally investigate or prosecute any alcohol or drug abuse patient.[facility] CenterIn the event this information is protected by the Federal Confidentiality of Alcohol and Drug Abuse Patient Records regulations: The Federal rules restrict any use of the information to criminally investigate or prosecute any alcohol or drug abuse patient.[facility] CenterIn the event this information is protected by the Federal Confidentiality of Alcohol and Drug Abuse Patient Records regulations: The Federal rules restrict any use of the information to criminally investigate or prosecute any alcohol or drug abuse patient.[facility] CenterIn the event this information is protected by the Federal Confidentiality of Alcohol and Drug Abuse Patient Records regulations: The Federal rules restrict any use of the information to criminally investigate or prosecute any alcohol or drug abuse patient.[facility] CenterIn the event this information is protected by the Federal Confidentiality of Alcohol and Drug Abuse Patient Records regulations: The Federal rules restrict any use of the information to criminally investigate or prosecute any alcohol or drug abuse patient.[facility] CenterIn the event this information is protected by the Federal Confidentiality of Alcohol and Drug Abuse Patient Records regulations: The Federal rules restrict any use of the information to criminally investigate or prosecute any alcohol or drug abuse patient.[facility] CenterIn the event this information is protected by the Federal Confidentiality of Alcohol and Drug Abuse Patient Records regulations: The Federal rules restrict any use of the information to criminally investigate or prosecute any alcohol or drug abuse patient.[facility] CenterIn the event this information is protected by the Federal Confidentiality of Alcohol and Drug Abuse Patient Records regulations: The Federal rules restrict any use of the information to criminally investigate or prosecute any alcohol or drug abuse patient.[facility] CenterIn the event this information is protected by the Federal Confidentiality of Alcohol and Drug Abuse Patient Records regulations: The Federal rules restrict any use of the information to criminally investigate or prosecute any alcohol or drug abuse patient.[facility] CenterIn the event this information is protected by the Federal Confidentiality of Alcohol and Drug Abuse Patient Records regulations: The Federal rules restrict any use of the information to criminally investigate or prosecute any alcohol or drug abuse patient.[facility] CenterIn the event this information is protected by the Federal Confidentiality of Alcohol and Drug Abuse Patient Records regulations: The Federal rules restrict any use of the information to criminally investigate or prosecute any alcohol or drug abuse patient.[facility] CenterIn the event this information is protected by the Federal Confidentiality of Alcohol and Drug Abuse Patient Records regulations: The Federal rules restrict any use of the information to criminally investigate or prosecute any alcohol or drug abuse patient.[facility] CenterIn the event this information is protected by the Federal Confidentiality of Alcohol and Drug Abuse Patient Records regulations: The Federal rules restrict any use of the information to criminally investigate or prosecute any alcohol or drug abuse patient.[facility] CenterIn the event this information is protected by the Federal Confidentiality of Alcohol and Drug Abuse Patient Records regulations: The Federal rules restrict any use of the information to criminally investigate or prosecute any alcohol or drug abuse patient.[facility] CenterIn the event this information is protected by the Federal Confidentiality of Alcohol and Drug Abuse Patient Records regulations: The Federal rules restrict any use of the information to criminally investigate or prosecute any alcohol or drug abuse patient.[facility] CenterIn the event this information is protected by the Federal Confidentiality of Alcohol and Drug Abuse Patient Records regulations: The Federal rules restrict any use of the information to criminally investigate or prosecute any alcohol or drug abuse patient.[facility] CenterIn the event this information is protected by the Federal Confidentiality of Alcohol and Drug Abuse Patient Records regulations: The Federal rules restrict any use of the information to criminally investigate or prosecute any alcohol or drug abuse patient.[facility] CenterIn the event this information is protected by the Federal Confidentiality of Alcohol and Drug Abuse Patient Records regulations: The Federal rules restrict any use of the information to criminally investigate or prosecute any alcohol or drug abuse patient.[facility] CenterIn the event this information is protected by the Federal Confidentiality of Alcohol and Drug Abuse Patient Records regulations: The Federal rules restrict any use of the information to criminally investigate or prosecute any alcohol or drug abuse patient.[facility] CenterIn the event this information is protected by the Federal Confidentiality of Alcohol and Drug Abuse Patient Records regulations: The Federal rules restrict any use of the information to criminally investigate or prosecute any alcohol or drug abuse patient.[facility] CenterIn the event this information is protected by the Federal Confidentiality of Alcohol and Drug Abuse Patient Records regulations: The Federal rules restrict any use of the information to criminally investigate or prosecute any alcohol or drug abuse patient.[facility] CenterIn the event this information is protected by the Federal Confidentiality of Alcohol and Drug Abuse Patient Records regulations: The Federal rules restrict any use of the information to criminally investigate or prosecute any alcohol or drug abuse patient.[facility] CenterIn the event this information is protected by the Federal Confidentiality of Alcohol and Drug Abuse Patient Records regulations: The Federal rules restrict any use of the information to criminally investigate or prosecute any alcohol or drug abuse patient.[facility] CenterIn the event this information is protected by the Federal Confidentiality of Alcohol and Drug Abuse Patient Records regulations: The Federal rules restrict any use of the information to criminally investigate or prosecute any alcohol or drug abuse patient.[facility] CenterIn the event this information is protected by the Federal Confidentiality of Alcohol and Drug Abuse Patient Records regulations: The Federal rules restrict any use of the information to criminally investigate or prosecute any alcohol or drug abuse patient.[facility] CenterIn the event this information is protected by the Federal Confidentiality of Alcohol and Drug Abuse Patient Records regulations: The Federal rules restrict any use of the information to criminally investigate or prosecute any alcohol or drug abuse patient.[facility] CenterIn the event this information is protected by the Federal Confidentiality of Alcohol and Drug Abuse Patient Records regulations: The Federal rules restrict any use of the information to criminally investigate or prosecute any alcohol or drug abuse patient.[facility] CenterIn the event this information is protected by the Federal Confidentiality of Alcohol and Drug Abuse Patient Records regulations: The Federal rules restrict any use of the information to criminally investigate or prosecute any alcohol or drug abuse patient.[facility] CenterIn the event this information is protected by the Federal Confidentiality of Alcohol and Drug Abuse Patient Records regulations: The Federal rules restrict any use of the information to criminally investigate or prosecute any alcohol or drug abuse patient.[facility] CenterIn the event this information is protected by the Federal Confidentiality of Alcohol and Drug Abuse Patient Records regulations: The Federal rules restrict any use of the information to criminally investigate or prosecute any alcohol or drug abuse patient.[facility] CenterIn the event this information is protected by the Federal Confidentiality of Alcohol and Drug Abuse Patient Records regulations: The Federal rules restrict any use of the information to criminally investigate or prosecute any alcohol or drug abuse patient.[facility] CenterIn the event this information is protected by the Federal Confidentiality of Alcohol and Drug Abuse Patient Records regulations: The Federal rules restrict any use of the information to criminally investigate or prosecute any alcohol or drug abuse patient.[facility] CenterIn the event this information is protected by the Federal Confidentiality of Alcohol and Drug Abuse Patient Records regulations: The Federal rules restrict any use of the information to criminally investigate or prosecute any alcohol or drug abuse patient.[facility] CenterIn the event this information is protected by the Federal Confidentiality of Alcohol and Drug Abuse Patient Records regulations: The Federal rules restrict any use of the information to criminally investigate or prosecute any alcohol or drug abuse patient.[facility] CenterIn the event this information is protected by the Federal Confidentiality of Alcohol and Drug Abuse Patient Records regulations: The Federal rules restrict any use of the information to criminally investigate or prosecute any alcohol or drug abuse patient.[facility] CenterIn the event this information is protected by the Federal Confidentiality of Alcohol and Drug Abuse Patient Records regulations: The Federal rules restrict any use of the information to criminally investigate or prosecute any alcohol or drug abuse patient.[facility] CenterIn the event this information is protected by the Federal Confidentiality of Alcohol and Drug Abuse Patient Records regulations: The Federal rules restrict any use of the information to criminally investigate or prosecute any alcohol or drug abuse patient.[facility] CenterIn the event this information is protected by the Federal Confidentiality of Alcohol and Drug Abuse Patient Records regulations: The Federal rules restrict any use of the information to criminally investigate or prosecute any alcohol or drug abuse patient.[facility] CenterIn the event this information is protected by the Federal Confidentiality of Alcohol and Drug Abuse Patient Records regulations: The Federal rules restrict any use of the information to criminally investigate or prosecute any alcohol or drug abuse patient.[facility] CenterIn the event this information is protected by the Federal Confidentiality of Alcohol and Drug Abuse Patient Records regulations: The Federal rules restrict any use of the information to criminally investigate or prosecute any alcohol or drug abuse patient.[facility] CenterIn the event this information is protected by the Federal Confidentiality of Alcohol and Drug Abuse Patient Records regulations: The Federal rules restrict any use of the information to criminally investigate or prosecute any alcohol or drug abuse patient.[facility] CenterIn the event this information is protected by the Federal Confidentiality of Alcohol and Drug Abuse Patient Records regulations: The Federal rules restrict any use of the information to criminally investigate or prosecute any alcohol or drug abuse patient.[facility] CenterIn the event this information is protected by the Federal Confidentiality of Alcohol and Drug Abuse Patient Records regulations: The Federal rules restrict any use of the information to criminally investigate or prosecute any alcohol or drug abuse patient.[facility] CenterIn the event this information is protected by the Federal Confidentiality of Alcohol and Drug Abuse Patient Records regulations: The Federal rules restrict any use of the information to criminally investigate or prosecute any alcohol or drug abuse patient.[facility] CenterIn the event this information is protected by the Federal Confidentiality of Alcohol and Drug Abuse Patient Records regulations: The Federal rules restrict any use of the information to criminally investigate or prosecute any alcohol or drug abuse patient.[facility] CenterIn the event this information is protected by the Federal Confidentiality of Alcohol and Drug Abuse Patient Records regulations: The Federal rules restrict any use of the information to criminally investigate or prosecute any alcohol or drug abuse patient.[facility] CenterIn the event this information is protected by the Federal Confidentiality of Alcohol and Drug Abuse Patient Records regulations: The Federal rules restrict any use of the information to criminally investigate or prosecute any alcohol or drug abuse patient.[facility] CenterIn the event this information is protected by the Federal Confidentiality of Alcohol and Drug Abuse Patient Records regulations: The Federal rules restrict any use of the information to criminally investigate or prosecute any alcohol or drug abuse patient.[facility] Care Teams (unrecognized sec tion and content) Geology Instructor Relationship Specialty Start Date End Date Nagi Edwards PA-C [address] [place] [address] PCP - General Family Practice 12/30/16 Geology Instructor Relationship Specialty Start Date End Date Nagi Edwards PA-C [address] [place] [address] PCP - General Family Practice 12/30/16 Geology Instructor Relationship Specialty Start Date End Date Nagi Edwards PA-C [address] [place] [address] PCP - General Family Practice 12/30/16 Geology Instructor Relationship Specialty Start Date End Date Nagi Edwards PA-C [address] [place] [address] PCP - General Family Practice 12/30/16 Geology Instructor Relationship Specialty Start Date End Date Nagi Edwards PA-C [address] [place] [address] PCP - General Family Practice 12/30/16 Geology Instructor Relationship Specialty Start Date End Date Nagi Edwards PA-C [address] [place] [address] PCP - General Family Practice 12/30/16 Geology Instructor Relationship Specialty Start Date End Date Nagi Edwards PA-C [address] [place] [address] PCP - General Family Medicine 12/30/16 Geology Instructor Relationship Specialty Start Date End Date Nagi Edwards PA-C [address] [place] [address] PCP - General Family Medicine 12/30/16 Geology Instructor Relationship Specialty Start Date End Date Nagi Edwards PA-C [address] [place] [address] PCP - General Family Medicine 12/30/16 Geology Instructor Relationship Specialty Start Date End Date Nagi Edwards PA-C [address] [place] [address] PCP - General Family Medicine 12/30/16 Geology Instructor Relationship Specialty Start Date End Date Nagi Edwards PA-C [address] [place] [address] PCP - General Family Medicine 12/30/16 Geology Instructor Relationship Specialty Start Date End Date Nagi Edwards PA-C [address] [place] [address] PCP - General Family Medicine 12/30/16 Geology Instructor Relationship Specialty Start Date End Date Nagi Edwards PA-C [address] [place] [address] PCP - General Family Medicine 12/30/16 Geology Instructor Relationship Specialty Start Date End Date Nagi Edwards PA-C [address] [place] [address] PCP - General Family Medicine 12/30/16 Geology Instructor Relationship Specialty Start Date End Date Nagi Edwards PA-C [address] [place] [address] PCP - General Family Medicine 12/30/16 Geology Instructor Relationship Specialty Start Date End Date Nagi Edwards PA-C [address] [place] [address] PCP - General Family Medicine 12/30/16 Geology Instructor Relationship Specialty Start Date End Date Nagi Edwards PA-C [address] [place] [address] PCP - General Family Medicine 12/30/16 Geology Instructor Relationship Specialty Start Date End Date Nagi Edwards PA-C [address] [place] [address] PCP - General Family Medicine 12/30/16 Geology Instructor Relationship Specialty Start Date End Date Nagi Edwards PA-C [address] [place] [address] PCP - General Family Medicine 12/30/16 Geology Instructor Relationship Specialty Start Date End Date Nagi Edwards PA-C [address] [place] [address] PCP - General Family Medicine 12/30/16 Geology Instructor Relationship Specialty Start Date End Date Nagi Edwards PA-C [address] [place] [address] PCP - General Family Medicine 12/30/16 Geology Instructor Relationship Specialty Start Date End Date Nagi Edwards PA-C [address] [place] [address] PCP - General Family Medicine 12/30/16 Geology Instructor Relationship Specialty Start Date End Date Nagi Edwards PA-C [address] [place] [address] PCP - General Family Medicine 12/30/16 Geology Instructor Relationship Specialty Start Date End Date Nagi Edwards PA-C [address] [place] [address] PCP - General Family Medicine 12/30/16 Geology Instructor Relationship Specialty Start Date End Date Nagi Edwards PA-C [address] [place] [address] PCP - General Family Medicine 12/30/16 Geology Instructor Relationship Specialty Start Date End Date Nagi Edwards PA-C [address] [place] [address] PCP - General Family Medicine 12/30/16 Geology Instructor Relationship Specialty Start Date End Date Ngai Edwards PA-C [address] [place] [address] PCP - General Family Medicine 12/30/16 Geology Instructor Relationship Specialty Start Date End Date Nagi Edwards PA-C [address] [place] [address] PCP - General Family Medicine 12/30/16 Geology Instructor Relationship Specialty Start Date End Date Nagi Edwards PA-C [address] [place] [address] PCP - General Family Medicine 12/30/16 Geology Instructor Relationship Specialty Start Date End Date Nagi Edwards PA-C [address] [place] [address] PCP - General Family [facility] 12/30/16 Geology Instructor Relationship Specialty Start Date End Date Nagi Edwards PA-C [address] [place], [place] [address] PCP - [facility] 12/30/16 Geology Instructor Relationship Specialty Start Date End Date Nagi Edwards PA-C [address] [place], [place] [id number] PCP - [facility] 12/30/16 Geology Instructor Relationship Specialty Start Date End Date Nagi Edwards PA-C [address] [place], [place] [id number] PCP - General Family [facility] 12/30/16 FOR RECORDS PERTAINING TO PATIENTS WHO ARE OR HAVE BEEN ENROLLED IN A CHEMICAL DEPENDENCY/SUBSTANCEABUSE PROGRAM, SOME INFORMATION MAY BE OMITTED. This clinical summary was aggregated from multiple sources. Caution should be exercised in using it in the provision of clinical care. This summary normalizes information from multiple sources, and as a consequence, information in this document may materially change the coding, format and clinical context of patient data. In addition, data may be omitted in some cases. CLINICAL DECISIONS SHOULD BE BASED ON THE PRIMARY CLINICAL RECORDS. [facility] [employer] [facility]. provides no warranty or guarantee of the accuracy or completeness of information in this document.
--- NOTE | 2023-03-27 10:41 | RAD_ITS ---
STUDY: X-RAY CHEST REASON FOR EXAM: Male, 62 years old. Chest pain TECHNIQUE: Single AP portable view of the chest. COMPARISON: December 11, 2021 FINDINGS: The lungs are clear and expanded. There is no demonstrated pleural abnormality. Normal size heart. There are coronary endovascular stent(s) present. Normal mediastinum and james. Normal visualized pulmonary arteries. Normal visualized aortic arch and descending thoracic aorta. There are degenerative changes of the visualized thoracic spine. Normal visualized ribs, clavicles, and shoulders. There is no demonstrated abnormality of the visualized soft tissue structures of the upper abdomen. RAD/Chest 1 View (Portable) IMPRESSION: No acute cardiopulmonary disease. Electronically Signed: Srikanth Jesus MD at 12:03 [facility] ,
[2023-03-27 10:54] LABS: Absolute Lymphocyte Count 2.18 X10^3/uL (0.83-4.51); Absolute Neutrophil Count 4.9 X10^3/uL (2.0-7.7); Basophil# 0.07 X10^3/uL; Basophil% 0.9 % (0-1); Eosinophil# 0.15 X10^3/uL; Eosinophils% 1.9 % (0-5); Hematocrit 44.9 % (40-54); Hemoglobin 14.9 g/dL (13.0-16.5); Lymphocyte # 2.18 X10^3/ul (0.83-4.51); Lymphocyte % 27.7 % (19-41); Mean Corp Hgb Conc 33.2 g/dL (32-36); Mean Corpuscular Hgb 29.4 pg (27.0-32.0); Mean Corpuscular Volume 88.6 fL (80-94); Mean Platelet Vol. 10.7 fl (6.2-12.0); Monocyte# 0.59 X10^3/uL; Monocyte% 7.5 % (0-10); NRBC Flagged by Analyzer 0 % (0-5); Neutrophil # 4.87 X10^3/uL (2.7-7.7); Neutrophil % 61.7 % (47-70); Platelet Count 305 K/mm3 (150-450); RBC Distribution Width CV 14.6 % (11.6-14.6); RBC Distribution Width SD 47.2 fl (35.1-43.9); Red Blood Count 5.07 M/mm3 (4.6-6.2); White Blood Count 7.9 K/mm3 (4.4-11.0)
[2023-03-27] MEDS: Aspirin 81 MG TAB.CHEW 324 MG PO (11:08)
[2023-03-27 11:09] LABS: Anion Gap 6 (5-15); BUN 25 mg/dL (7-18); BUN/Creat Ratio 22.7 RATIO (10-20); Calcium,Total 9.4 mg/dL (8.5-10.1); Chloride 107 mmol/L (98-107); EST Glomerular Filtration Rate 72 mL/min (>60); Est Glom Filt Rate - Afr Amer 87 mL/min (>60); Estimated Creatinine Clearance 81.17 ml/min; Glucose 135 mg/dL (74-106); Potassium 3.7 mmol/L (3.5-5.1); Sodium Level 140 mmol/L (136-145); Troponin-I HS (w/2H Reflex) 10 pg/mL (3.0-78.0)
[2023-03-27 12:48] LABS: Reflex Troponin-HS? (from REC) Y
[2023-03-27 13:29] LABS: Troponin-I HS 9 pg/mL (3.0-78.0)
== END 2023-03-27 13:50 | disposition home or self-care (01) ==
PROVIDERS: Emergency Provider Emergency Medicine; PCP Physician Assistant; Visit Provider Emergency Medicine
DX: R11.2 Nausea with vomiting, unspecified (principal); E11.9 Type 2 diabetes mellitus without complications; I10 Essential (primary) hypertension; E78.5 Hyperlipidemia, unspecified; F17.210 Nicotine dependence, cigarettes, uncomplicated; R55 Syncope and collapse; I25.10 Atherosclerotic heart disease of native coronary artery without angina pectoris; Z79.899 Other long term (current) drug therapy; Z79.82 Long term (current) use of aspirin; Z79.84 Long term (current) use of oral hypoglycemic drugs; Z79.85 Long-term (current) use of injectable non-insulin antidiabetic drugs; Z90.49 Acquired absence of other specified parts of digestive tract; Z95.5 Presence of coronary angioplasty implant and graft
CPT/HCPCS: 71045; 80048; 84484; 85025; 93005; 99284; A4216